=== PATIENT | female | born 1960 | race Caucasian/White ===

== ENCOUNTER → 2017-01-09 | Outpatient (CLI) | payer BC ==
--- NOTE | 2017-01-10 14:41 | MAMMOGRAPHY REPORT ---
BILATERAL DIGITAL SCREENING MAMMOGRAM TOMOSYNTHESIS WITH CAD: 01/09/2017 CLINICAL HISTORY: Routine screening. Patient has no complaints. TECHNIQUE: Breast tomosynthesis in addition to standard 2D mammography was performed. Current study was also evaluated with a Computer Aided Detection (CAD) system. COMPARISON: Comparison is made to exams dated: 01/04/2016 mammogram, 12/30/2014 mammogram, 12/26/2013 mammogram, 12/24/2012 mammogram, 12/18/2011 mammogram, and 12/13/2010 mammogram - [facility]. BREAST COMPOSITION: The tissue of both breasts is extremely dense, which lowers the sensitivity of mammography. FINDINGS: A newly visualized 11 mm mass in the far posterior, slightly inferior left breast on the MLO view is partly visualized on this exam. Based on the tomosynthesis slices, this is located in t he lateral aspect of the breast. Further characterization with targeted ultrasound and possible add itional mammographic views is recommended. A 9.5 mm asymmetry in the slightly superior, posterior r ight breast on the MLO view could represent normal overlapping fibroglandular tissue but remains con spicuous on the tomosynthesis images. Additional spot compression tomosynthesis views with a small paddle, exaggerated lateral right CC and possibly ultrasound is recommended. No focal area of architectural distortion or suspicious microcalcifications are seen bilaterally. IMPRESSION: ACR BI-RADS CATEGORY 0: INCOMPLETE EVALUATION: NEED ADDITIONAL IMAGING EVALUATION The new, incompletely visualized 11 mm mass in the inferior posterior left breast, and right superio r asymmetry need additional imaging evaluation. The patient will be called to schedule an appointment. Approximately 10% of breast cancers are not detected with mammography. A negative mammographic repor t should not delay biopsy if a clinically suggestive mass is present. Renee Lehman M.D. ay/:01/09/2017 21:19:36 Master Scheduler: Rosalva Rodriguez, [facility] letter sent: Addl Imaging 0 BI-RADS Code: ACR BI-RADS Category 0: Incomplete Evaluation: Need Additional Imaging Evaluation
== END | disposition home or self-care (01) ==
LOC: C.MAMM 07:14
PROVIDERS: ATTEND Obstetrics & Gynecology
DX: Z12.31 Encounter for screening mammogram for malignant neoplasm of breast (principal)

== ENCOUNTER → 2017-01-12 | Outpatient (CLI) | payer BC ==
--- NOTE | 2017-01-12 13:04 | MAMMOGRAPHY REPORT ---
BILATERAL DIGITAL DIAGNOSTIC MAMMOGRAM TOMOSYNTHESIS AND TARGETED BILATERAL ULTRASOUND: 01/12/2017 CLINICAL HISTORY: Callback from screening mammogram for left breast mass and right breast asymmetry. TECHNIQUE: Breast tomosynthesis in addition to standard 2D mammography was performed. Spot miakela lamin bilateral MLO 2-D and tomosynthesis images and full field 2D bilateral X CCL views were obtaine d. COMPARISON: Comparison is made to exams dated: 01/09/2017 mammogram, 01/04/2016 mammogram, 12/30/2014 m ammogram, 12/26/2013 mammogram, 12/24/2012 mammogram, and 12/18/2011 mammogram - [facility]. BREAST COMPOSITION: The tissue of both breasts is extremely dense, which lowers the sensitivity of mammography. FINDINGS: Spot compression views demonstrate a persistent oval circumscribed 10 mm mass seen within the left posterior breast on the MLO view, thought to project laterally based on the tomosynthesis l ocalizer bar, with no clear correlate seen on the X CCL view. The previously described asymmetry se en within the right superior breast on the MLO view effaces to a baseline appearance on the spot com pression view, with the appearance of this region similar to multiple prior exams. No suspicious ma ss or architectural distortion is seen in this region on the tomosynthesis images. Targeted ultrasound was performed of the area of the mammographic mass in the left breast. As it wa s seen only on one view, ultrasound was performed of the left 3:00, 9:00, subareolar breast, and 4:0 0 breast. In the left 4:00 breast, 7 cm from the nipple, there is an oval anechoic circumscribed ma ss which measures 8 x 5 x 9 mm. This corresponds with the mammographic mass and is consistent with a benign simple cyst. Targeted ultrasound was performed of the right slightly superior breast in the region of the mammogr aphic asymmetry, which shows no suspicious masses or other suspicious sonographic abnormalities. IMPRESSION: ACR BI-RADS CATEGORY 2: BENIGN, TARGETED ULTRASOUND ACR BI-RADS CATEGORY 2: BENIGN 1. Benign 9 mm simple cyst in the left breast at 4:00, which corresponds with the new mammographic mass. 2. The right breast asymmetry effaces on the additional views, without corresponding sonographic ab normalities evident. The asymmetry is benign and compatible with normal overlapping fibroglandular tissue. There is no mammographic or targeted sonographic evidence of malignancy. A 1 year screening mammogra m is recommended. The patient has been verbally notified of the results. Approximately 10% of breast cancers are not detected with mammography. A negative mammographic repor t should not delay biopsy if a clinically suggestive mass is present. Anne Lan M.D. ah/:01/12/2017 12:02:15 Superintendent Communications: Rosalva Rodriguez, [facility] letter sent: Normal 1/2 BI-RADS Code: ACR BI-RADS Category 2: Benign Ultrasound BI-RADS: ACR BI-RADS Category 2: Benign
== END | disposition home or self-care (01) ==
LOC: C.MAMM 11:01
PROVIDERS: ATTEND Obstetrics & Gynecology
DX: N63 Unspecified lump in breast (principal); N64.89 Other specified disorders of breast; N60.02 Solitary cyst of left breast

== ENCOUNTER → 2017-03-30 | Outpatient (CLI) | payer BC | END | disposition home or self-care (01) | LOC: C.PAPS 15:51 | PROVIDERS: ATTEND Obstetrics & Gynecology | DX: Z01.419 Encounter for gynecological examination (general) (routine) without abnormal findings (principal) ==

== ENCOUNTER → 2018-01-17 | Outpatient (CLI) | payer OTHER ==
--- NOTE | 2018-01-18 07:44 | MAMMOGRAPHY REPORT ---
BILATERAL DIGITAL SCREENING MAMMOGRAM TOMOSYNTHESIS WITH CAD: 01/17/2018 CLINICAL HISTORY: Routine screening. Patient has no complaints. TECHNIQUE: Breast tomosynthesis in addition to standard 2D mammography was performed. Current study was also evaluated with a Computer Aided Detection (CAD) system. COMPARISON: Comparison is made to exams dated: 01/12/2017 ultrasound, 01/12/2017 mammogram, 01/09/2017 carolin mogram, 01/04/2016 mammogram, 12/30/2014 mammogram, and 12/26/2013 mammogram - [facility]. BREAST COMPOSITION: The tissue of both breasts is extremely dense, which lowers the sensitivity of m ammography. FINDINGS: No suspicious masses, calcifications, or areas of architectural distortion are noted in ei ther breast. There has been no significant interval change compared to prior exams. IMPRESSION: ACR BI-RADS CATEGORY 1: NEGATIVE There is no mammographic evidence of malignancy. A 1 year screening mammogram is recommended. The pa tient will receive written notification of the results. Approximately 10% of breast cancers are not detected with mammography. A negative mammographic report should not delay biopsy if a clinically suggestive mass is present. Anne Lan M.D. ah/:01/17/2018 07:41:35 Furniture Mover Helper: Lucy ANTON(R)(), [facility] letter sent: Normal 1/2 BI-RADS Code: ACR BI-RADS Category 1: Negative
== END | disposition home or self-care (01) ==
LOC: C.MAMM 07:13
PROVIDERS: ATTEND Obstetrics & Gynecology
DX: Z12.31 Encounter for screening mammogram for malignant neoplasm of breast (principal)

== ENCOUNTER → 2018-05-22 | Outpatient (CLI) | payer OTHER | END | disposition home or self-care (01) | LOC: C.LAB1850 16:31 | PROVIDERS: ATTEND Obstetrics & Gynecology | DX: R39.9 Unspecified symptoms and signs involving the genitourinary system (principal) ==